=== PATIENT | female | born 1990 | race Caucasian/White ===

== ENCOUNTER 2018-08-16 16:40 | Emergency (ER) | payer OTHER ==
[~2018-08-16] VITALS: Ht 160 cm; Wt 70.8 kg
[2018-08-16 17:13] VITALS: Ht 160 cm; Wt 70.8 kg
[2018-08-16 20:34] LABS: BASOPHIL % 0.6 % (0-2); PLATELET COUNT 202 x10^3mcL (130-400)
[2018-08-16 20:43] LABS: CALCIUM 8.8 mg/dL (8.5-10.1); CARBON DIOXIDE 29.1 mmol/L (21-32); CHLORIDE SERUM 103 mmol/L (98-107); CREATININE SERUM 0.6 mg/dL (0.6-1.0); GFR1 > 60 mL/min; GLUCOSE SERUM 91 mg/dL (74-106); POTASSIUM SERUM 3.4 mmol/L (3.5-5.1); SODIUM SERUM 141 mmol/L (136-145)
[2018-08-16 20:46] LABS: microscopic required? YES; urine erythrocyte 3+ (NEGATIVE)
[2018-08-16 20:49] LABS: ALKALINE PHOSPHATASE 114 U/L (46-116); ALT/SGPT 26 U/L (14-59); AST/SGOT 19 U/L (15-37); BILIRUBIN TOTAL 0.78 mg/dL (0.20-1.00); LIPASE 192 IU/L (73-393); TOTAL PROTEIN, SERUM 8.4 g/dL (6.4-8.2)
[2018-08-16 23:45] VITALS: BP 120/82
== END 2018-08-16 23:45 | disposition home or self-care (01) ==
LOC: ED 16:40
PROVIDERS: Emergency Medicine
DX: N93.9 Abnormal uterine and vaginal bleeding, unspecified (principal); Z88.0 Allergy status to penicillin
CPT/HCPCS: 36415

== ENCOUNTER 2019-06-21 18:15 | Emergency (ER) | payer OTHER ==
[~2019-06-21] VITALS: Ht 160 cm; Wt 70.3 kg
[2019-06-21 23:18] VITALS: BP 130/65
== END 2019-06-21 23:18 | disposition home or self-care (01) ==
LOC: ED 18:15
DX: R51 Headache (principal); H53.149 Visual discomfort, unspecified; R11.0 Nausea; Z88.0 Allergy status to penicillin
CPT/HCPCS: J1885; J8597